=== PATIENT | male | born 1965 | race Caucasian/White ===

== ENCOUNTER 2021-08-27 19:22 | Emergency (ER) | payer OTHER ==
[~2021-08-27] VITALS: Ht 177.8 cm; Wt 93.0 kg
[~2021-08-27 19:22] MED LIST: GLUMETZA1000 MG PO; NEUROTIN PO; VASOTEC20 M1 PO
== END 2021-08-27 22:08 | disposition home or self-care (01) ==
LOC: ER 19:22
DX: J06.9 Acute upper respiratory infection, unspecified (principal); Z20.822 Contact with and (suspected) exposure to COVID-19